=== PATIENT | female | born 1950 ===

== ENCOUNTER 2019-05-15 16:02 | Outpatient (REF) | payer MEDICARE, SELFPAY ==
[2019-05-15 17:00] LABS: Bilirubin Negative (Negative); Blood Trace-lysed (Negative); Clarity Clear (Clear); Glucose Negative (Negative); Ketones Negative (Negative); Leukocyte Esterase Moderate (Negative); Nitrite Positive (Negative); Specific Gravity 1.025 (1.005-1.025); Urobilinogen 0.2 EU/dL (Up TO 0.2)
[2019-05-15 17:38] LABS: Bacteria Many HPF (Negative); C & S Indicated? No/Sq. Contamination; Casts Negative LPF (Negative); Crystals Few Calcium Oxalate HPF (Negative); Epithelial Cells Many HPF (Negative); Mucus Negative (Negative); RBC Negative (0-2); WBC 20-50 HPF (0-5)
== END 2019-05-15 16:22 ==
LOC: LBN 16:02
PROVIDERS: PCP Obstetrics & Gynecology Gynecology; Visit Provider Obstetrics & Gynecology Gynecology
DX: N81.2 Incomplete uterovaginal prolapse (principal); Z48.816 Encounter for surgical aftercare following surgery on the genitourinary system; R82.90 Unspecified abnormal findings in urine
CPT/HCPCS: 81003; 81015

== ENCOUNTER 2019-05-19 16:04 | Outpatient (REF) | payer MEDICARE, SELFPAY ==
[2019-05-19 20:10] LABS: Bilirubin Negative (Negative); Blood Trace-intact (Negative); Clarity Clear (Clear); Glucose Negative (Negative); Ketones Negative (Negative); Leukocyte Esterase Trace (Negative); Nitrite Negative (Negative); Specific Gravity <= 1.005 (1.005-1.025); Urobilinogen 0.2 EU/dL (Up TO 0.2); pH 5.5 (5-8)
[2019-05-19 20:26] LABS: Bacteria Few HPF (Negative); C & S Indicated? Yes; Casts Negative LPF (Negative); Crystals Negative HPF (Negative); Epithelial Cells Negative HPF (Negative); Mucus Negative (Negative); RBC Negative (0-2); WBC Negative HPF (0-5)
== END 2019-05-19 16:24 ==
LOC: LBN 16:04
PROVIDERS: PCP Obstetrics & Gynecology Gynecology; Visit Provider Obstetrics & Gynecology Gynecology
DX: Z48.816 Encounter for surgical aftercare following surgery on the genitourinary system (principal); R82.90 Unspecified abnormal findings in urine
CPT/HCPCS: 87077; 81003; 81015; 87086; 87186